=== PATIENT | male | born 1970 | race Caucasian/White ===

== ENCOUNTER 2017-10-29 13:30 | Emergency (ER) | payer OTHER ==
[~2017-10-29] VITALS: Ht 180.3 cm; Wt 93.7 kg
[~2017-10-29 13:30] MED LIST: CLON0.5T3 PO
[2017-10-29 13:35] VITALS: BP 174/83; PULSE 97; TEMP 36.9; O2SAT 97; Ht 180.3 cm; Wt 93.7 kg
--- NOTE | 2017-10-29 14:21 | EMERGENCY ROOM VISIT NOTE ---
History First contact with patient: 14:02 Chief Complaint: ANXIETY Stated Complaint: ANXIETY ATTACKS History of Present Illness The patient is a 47 year old male who presents to the Emergency Room with complaints of anxiety. He reports he has a history of panic attacks, and over the last week has struggled with anxiety due to staying with his mom, who is struggling since this is the anniversary of her father's . He denies any palpitations, sweats, or other systemic symptoms. He denies any suicidal or homicidal thoughts. He reports he took a Xanax and that did not do much. He is requesting 5-10 tablets of Klonopin to help him sleep. He reports he does not have a PCP but could follow up with one locally. He denies any chest pain, shortness of breath, abdominal pain, numbness or tingling. Review of Systems See HPI for pertinent positives & negatives. A total of 10 systems reviewed and were otherwise negative. Past Medical/Surgical History Medical Problems: (1) Anxiety Family History Father from [facility] [place]. Mother has thyroid issues. No FHx of heart disease or diabetes. Reports his sister has leukemia. Social History Smoking Status: Current Every Day Smoker Alcohol Use: none Drug Use: none Housing Status: lives with family Occupation Status: unemployed Current/Historical Medications Scheduled PRN Clonazepam (Klonopin), 0.5 MG PO TID PRN for Anxiety Allergies NKDA Physical Exam Vital Signs Date Time Temp Pulse Resp B/P (MAP) Pulse Ox O2 Delivery O2 Flow Rate FiO2 10/29/17 13:35 36.9 97 18 174/83 97 Room Air Physical Exam General Appearance: WD/WN, no apparent distress Head: normocephalic, atraumatic Eyes: normal inspection, PERRL ENT: hearing grossly normal Neck: supple, no JVD Respiratory/Chest: lungs clear, normal breath sounds, no respiratory distress Cardiovascular: regular rate, rhythm, no murmur, normal peripheral pulses Abdomen / GI: normal bowel sounds, non tender, soft Back: no CVA tenderness, no muscle spasm Extremities: no calf tenderness, no pedal edema Neurologic/Psych: alert, normal mood/affect, normal reflexes, oriented x 3 Lymphatic: no adenopathy Medical Decision & Procedures Medications Administered None ED Course 1:45 PM: I evaluated the patient in room A7. A complete history and physical were performed. I discussed the case with Lynette, the ED Psych Liasion. 2:00 PM: I discussed the case with Dr. Gutierrez, ED Attending physician. He evaluated the patient separately. 2:15 PM: Dr Gutierrez returned and informed me the patient left after being told he would not get any controlled prescriptions. He declined any discharge paperwork. Medical Decision 47 yo M who presents with anxiety from both the anniversary of his father's passing and taking care of his mother who is grieving. Differential includes: Depression, Bipolar disorder w/manic episode, Panic attack, Thyroid abnormality. He is requesting 5-10 tables of Clonazepam and declined having any bloodwork done. The PDMP was reviewed - the patient had multiple accounts and the patient had multiple recent prescriptions for benzodiazepines. Specifically , the patient had Alprazolam 1mg filled on 10/23/17 and received 14 days worth of tablets, as well as Zolpidem 10mg x 30 days on 09/27/17. The patient left as soon as he was told he would not be receiving any controlled prescriptions. He declined any discharge paperwork. [place] Drug Monitoring Program Search Results: patient reviewed within database Drug Monitoring Findings: Multiple accounts, multiple recent prescriptions for benzodiazepines given within the last 30 days. Medication Reconcilliation Current Medication List: was personally reviewed by me Blood Pressure Screening Blood pressure disposition: Elevated BP felt to be situational Impression Primary Impression: Anxiety Additional Impression: Medication requested Departure Information Dispostion Home / Self-Care Referrals No Doctor, Assigned (PCP) Patient Instructions My [facility] Problem Qualifiers
--- NOTE | 2017-10-29 14:26 | EMERGENCY ROOM VISIT NOTE ---
ED Visit Note First contact with patient: 14:02 Resident Physician Supervision Note: Dr. Colette Thomas was resident physician during care of patient. I separately evaluated patient and did history and exam. I discussed the case with the resident and generally agree with the findings and plan. 47 yr old male arrives for discussion of his anxiety. Notes anniversary of his father's recently and he has been staying with his mother. Has had increased anxiety due to fact his mother has been work-ed up as well plus his aunt is in the hospital. Requesting Rx Klonopin for symptoms as difficulty sleeping at night. Denies suicidal/homicidal ideation. History of depression which he hasn't been taking his Prozac. After making clear to him I am aware of Xanax rx 6 days ago on PDMP he admits to receiving this Rx though states that it is "too strong" for him. States he can not take half dose because it acts too quickly. Admits he has received Rx from [facility]. I advised him it would be inappropriate of me to be writing further benzo rx at this time. I made very clear to him I want to try helping with this and that I'd like to try vistaril. He notes he does not want this and that it doesn't work for him. He states he has prozac at home but I advised against taking as not prescribed. He states he will just leave and go home if not getting Rx Klonopin. Refuses to stay for discharge instructions. Of note exam benign other than smells heavily of tobacco. States he is not interested in quitting smoking at this time. Diagnosis: Medication Request Anxiety Documented By: Uri Gutierrez MD
== END 2017-10-29 14:10 | disposition home or self-care (01) ==
LOC: C.EDB 13:31 → C.EDA 14:10
DX: F41.9 Anxiety disorder, unspecified (principal); F17.200 Nicotine dependence, unspecified, uncomplicated; Z80.1 Family history of malignant neoplasm of trachea, bronchus and lung; Z80.6 Family history of leukemia